=== PATIENT | female | born 1970 | race Caucasian/White ===

== ENCOUNTER → 2020-12-04 13:11 | Outpatient (CLI) | payer BC, SELFPAY ==
--- NOTE | 2020-12-04 | DI.ECHO.S_ITS ---
[facility]---------+ [facility] +---------+ : : [address] : [address] : : : : [id number] : : : : Phone: [phone]+ Echocardiogram Report + + :Name: HUMA MELÉNDEZ Study Date: 12/04/2020 Height: 65 in : :[facility] ReadingLocation: Weight: 142 lb : : Gender: Female BSA: 1.7 m2 : :: 1970 Age: 50 yrs BP: 123/89 mmHg: :Reason For Study: Palpitations : :Ordering Physician: ADY, : :LANNY Lang Performed By: Fito Villa : :Referring: LANNY GARSIA : + + Interpretation Summary The ejection fraction is estimated to be 60-65%. Normal left ventricular diastolic function and normal filling pressures. The right ventricle is normal in size and function. No significant valvular abnormalities. Unable to estimate PASP. Procedure: A two-dimensional transthoracic echocardiogram with color flow and Doppler was performed. The study quality was technically adequate. There is no prior echocardiogram noted for this patient. Left Ventricle: The left ventricle is normal in size and wall thickness. The ejection fraction is estimated to be 60-65%. Left ventricular systolic function is normal. There are no focal wall motion abnormalities. Diastolic parameters suggest probable normal left ventricular diastolic function and normal filling pressures. Right Ventricle: The right ventricle is normal in size and function. Atria: Both atria are normal in size. There is no Doppler evidence for an interatrial shunt. Mitral Valve: The mitral valve is normal in structure and function. There is trace mitral regurgitation. Aortic Valve: The aortic valve is normal in structure and function. No aortic regurgitation is present. Tricuspid Valve: The tricuspid valve is normal in structure and function. There is a trace or physiologic amount of tricuspid regurgitation. Pulmonary artery pressures cannot be estimated because of the lack of a measurable TR jet velocity but the IVC suggests a CVP of around 3 mmHg. Pulmonic Valve: The pulmonic valve is normal in structure and function. There is no pulmonic valvular regurgitation. Great Vessels: The aortic root is normal size. The dimensions of the ascending aorta are normal. The IVC is of normal diameter and collapses greater than 50% with a sniff. This suggests a low right atrial pressure of 3 mm Hg. Pericardium/ Pleura There is no pericardial effusion. There is no pleural effusion. MMode/2D Measurements & Calculations LVIDd: 4.8 cm LVOT diam: 2.1 cm LVIDs: 3.2 cm Ao root diam: 2.7 cm FS: 32.8 % asc Aorta Diam: 2.6 cm IVSd: 0.76 cm LVPWd: 0.74 cm LV flower. diameter/BSA (cm/m^2): 2.8 LV sys. diameter/BSA (cm/m^2): 1.9 LA A2 area: 16.1 cm2 RA long axis: 4.0 cm LA A4 area: 12.0 cm2 RA area: 10.3 cm2 LA length (vol): 4.2 cm RA vol: 22.5 ml LA vol: 39.4 ml RA : 13.2 ml/m2 LA vol index: 23.1 ml/m2 TAPSE: 2.3 cm Doppler Measurements & Calculations Ao V2 max: 123.7 cm/sec LVOT Max Evelio: 88.0 cm/sec Ao V2 mean: 90.9 cm/sec LV V1 max P.1 mmHg Ao max P.1 mmHg LV V1 VTI: 18.3 cm Ao mean P.6 mmHg STEVENSON(I,D): 2.4 cm2 Ao V2 VTI: 26.5 cm STEVENSON(V,D): 2.5 cm2 sev ratio: 0.69 STEVENSON indexed to BSA (cm^2/m^2): 1.4 MV E max evelio: 89.0 cm/sec PA V2 max: 96.7 cm/sec MV A max evelio: 86.0 cm/sec PA V2 mean: 71.3 cm/sec MV E/A: 1.0 PA mean P.2 mmHg Med Peak E' Veelio: 10.6 cm/sec PA pr(Accel): 43.9 mmHg E/E' med: 8.4 Lat Peak E' Evelio: 12.9 cm/sec E/E' lat: 6.9 E/e' average: 7.7 MV dec time: 0.22 sec SV(LVOT): 64.7 ml Reading Physician:05:10 PM
--- NOTE | 2020-12-04 18:43 | DI.NM.S_ITS ---
DATE OF SERVICE: 12/04/2020 PROCEDURE PERFORMED: Exercise treadmill stress test without imaging. ORDERING PROVIDER: Dr. Lanny Palacios. INDICATIONS: The patient is a 50-year-old female with palpitations and atypical chest pain. FINDINGS: 1. The patient was able to exercise for 10 minutes, 30 seconds on a standard Janes protocol suggesting good exercise capacity with an CHAYO of -30%, achieving 12.8 METs. 2. She had a normal heart rate and blood pressure response to exercise, achieving a maximum heart rate of 167 BPM (97% of her predicted maximum). 3. She had no chest discomfort or other anginal discomfort. 4. Her resting ECG shows sinus rhythm with occasional PVCs, but relatively normal ST segments. There were no significant ST-segment shifts with exercise. The frequency of her PVCs initially increases, but then decreases at higher heart rates and completely resolves by the later portion of her stress test and returns in recovery, but there no complex ventricular ectopy is seen. IMPRESSION: 1. Normal exercise treadmill stress test for ischemia. 2. Good exercise capacity without angina. She had occasional PVCs at rest, initially increasing with exercise, but then resolving at high workloads, without complex ventricular ectopy. HAMIDA MELÉNDEZNAH - NIKA/robert/julia doc#: [id number]/job#: [id number] dd: 12/04/2020 17:03:00 dt: 12/04/2020 18:09:00 DICTATING /COPIES TO: Pro Clark MD; Lanny Palacios M.D. COPIES MNE: ASHTYN;
== END ==
PROVIDERS: PCP Nurse Practitioner Family; Referring Provider Internal Medicine Cardiovascular Disease; Visit Provider Internal Medicine Cardiovascular Disease
DX: R00.2 Palpitations (principal); R07.89 Other chest pain
CPT/HCPCS: 93017; 93306